=== PATIENT | female | born 1935 | race Two or more races ===

== ENCOUNTER 2025-03-17 14:42 | Inpatient (IN) | payer OTHER ==
[~2025-03-17] VITALS: Ht 160 cm; Wt 78.9 kg
[2025-03-17] MEDS ORDERED: ZESTRIL40 M1 (15:01)
[2025-03-17] MEDS ORDERED: ASA-BUTALB-CAF1 EACH (15:01)
[2025-03-17] MEDS ORDERED: LEVOTHYROXINE25 MC2 PO (15:01)
[2025-03-17] MEDS ORDERED: GLIPIZIDE ER2.5 MG PO (15:02)
--- NOTE | 2025-03-17 15:02 | NUR ---
SE RECIBE PTE A ARISTEO DE EMERGENCIA EN AMBULANCIA ALERTA REFIERE QUE KORINA POR ULCERA EN AMBAS PIERNAS MAREADA [place] INCOHERENCIA. SE UBICA PARA EVALUACION MEDICA.
[2025-03-17] MEDS ORDERED: 0.9 % SODIUM CHLORIDE 1,000 ML IV STA (16:50)
--- NOTE | 2025-03-17 17:04 | NUR ---
RN. CONTRERAS ORIENTA PTE SOBRE ORDEN MEDICA Y LA ENJECUTA EN GRAVES TOTALIDAD
[2025-03-17 17:41] LABS: BASO % 0.2 % (0.1-1.2); EOS # 0.00 (0.04-0.54); EOS % 0.0 % (0.7-7.0); LYMPH # 1.72 (1.18-3.74); LYMPH % 6.9 % (19.3-53.1); MEAN PLATELET VOLUME 9.50 fl (9.4-12.4); MONO # 0.72 (0.24-0.82); MONO % 2.9 % (4.7-12.5); NEUT # 21.93 (1.56-6.13); NEUT % 87.6 % (34.0-71.1); RED CELL DISTRIBUTION WIDTH 13.4 % (11.6-14.4)
[2025-03-17 17:55] LABS: ERYTHROCYTE SEDIMENTATION RATE > 130 mm/hr (0-30)
[2025-03-17 17:57] LABS: COVID-19 AG NEGATIVE (NEGATIVE)
[2025-03-17 18:16] LABS: D DIMER 2.14 MG/L
[2025-03-17 18:17] LABS: ALT/SGPT 17.0 U/L (12-78); AST/SGOT 43.0 U/L (15-37); BILIRUBIN TOTAL 0.36 mg/dL (0.3-1.2); BUN CREA RATIO 30.0 (7.0-25.0); CREATININE SERUM 1.89 mg/dL (0.55-1.02); GFR 25.16; GLOBULINA 5.2 G/DL (2.4-3.5); GLUCOSE FASTING 194.0 mg/dL (65-100); OSMOLALITY SERUM 298.0 MOSM/KG (275-295)
[2025-03-17 18:27] LABS: INR 1.16
[2025-03-17] MEDS ORDERED: NITROGLYCERIN IN 5 % DEXTROSE 50 MG/250 ML KIT IV STA (18:46)
[2025-03-17] MEDS ORDERED: CLOPIDOGREL BISULFATE 75 MG TABLET PO STA (18:47)
[2025-03-17] MEDS ORDERED: SODIUM BICARBONATE 1 MEQ/ML DISP.SYRIN 50ML IV STA (18:48)
[2025-03-17] MEDS ORDERED: SODIUM BICARBONATE 50MEQ/50ML VIAL IV ONE (19:02)
[2025-03-17 19:03] LABS: ABG PH 7.388 (7.35-7.45); ABG PO2 74.4 mmHg (80-100); BICARBONATE 17.1 mmol/l (23-25)
[2025-03-17] MEDS ORDERED: CLOPIDOGREL BISULFATE 75 MG TABLET PO ONE (19:30)
[2025-03-17] MEDS ORDERED: SODIUM POLYSTYRENE SULFONATE 15 G/4 TSP TSP PO SCH (19:42)
[2025-03-17] MEDS ORDERED: INSULIN REGULAR, HUMAN 1,000 UNIT/10 ML UNITS IV ONE (19:45)
[2025-03-17] MEDS ORDERED: DEXTROSE 50 % IN WATER 0.5 G/ML VIAL IV ONE (19:45)
[2025-03-17] MEDS ORDERED: CALCIUM GLUCONATE 100 MG/ML VIAL IV ONE (19:45)
[2025-03-17] MEDS ORDERED: FAMOTIDINE/PF 20 MG in 0.9 % SODIUM CHLORIDE 8 ML IV PUSH SCH (19:48)
[2025-03-17] MEDS ORDERED: ATORVASTATIN CALCIUM 40 MG TABLET PO SCH (19:48)
[2025-03-17] MEDS ORDERED: INSULIN LISPRO 1,000 UNIT/10 ML UNITS SUBCUTANEO PRN (20:00)
[2025-03-17] MEDS ORDERED: ACETAMINOPHEN 500 MG GEL..CAP PO PRN (20:00)
[2025-03-17] MEDS ORDERED: 0.9 % SODIUM CHLORIDE 1,000 ML IV SCH (20:00)
[2025-03-17] MEDS ORDERED: DEXTROSE 50 % IN WATER 0.5 G/ML DISP.SYRIN IV PRN (20:00)
[2025-03-17] MEDS ORDERED: 0.9 % SODIUM CHLORIDE 1,000 ML IV ONE ×2 (20:00)
[2025-03-17 20:11] LABS: o2 21 %
[2025-03-17] MEDS ORDERED: LINEZOLID IN DEXTROSE 5% 300 ML IV SCH (21:00)
[2025-03-17] MEDS ORDERED: MEROPENEM 500 MG/VIAL VIAL IV SCH (21:00)
[2025-03-17] MEDS ORDERED: CALCIUM GLUCONATE 100 MG/ML VIAL ONE (21:09)
[2025-03-17] MEDS ORDERED: FAMOTIDINE/PF 20 MG/2 ML VIAL ONE (21:10)
[2025-03-17] MEDS ORDERED: INSULIN REGULAR, HUMAN 1,000 UNIT/10 ML UNITS ONE (21:10)
[2025-03-17] MEDS ORDERED: SODIUM POLYSTYRENE SULFONATE 15 G/4 TSP TSP ONE (21:11)
[2025-03-17] MEDS ORDERED: NOREPINEPHRINE BITARTRATE 1 MG/ML AMPUL IV ONE (21:21)
[2025-03-17] MEDS ORDERED: NOREPINEPHRINE BITARTRATE 8 MG in DEXTROSE 5 % IN WATER 250 ML IV SCH (21:30)
[2025-03-17 22:56] VITALS: BP 114/53
[2025-03-17 23:00] VITALS: BP 151/58; O2SAT 100
[2025-03-18] VITALS (17 sets, daily range): BP systolic 98–158; BP diastolic 44–84; O2SAT 95–100
[2025-03-18] MEDS ORDERED: LEVOTHYROXINE SODIUM 25 MCG TABLET PO SCH (06:00)
[2025-03-18 06:22] LABS: URINE APPEARANCE Clear; URINE BILIRRUBIN Negative (NEGATIVE); URINE BLOOD Moderate; URINE COLOR Yellow; URINE GLUCOSE Negative (NEGATIVE); URINE KETONE Trace (NEGATIVE); URINE LEUKOCYTE Moderate; URINE NITRATE Negative; URINE PROTEIN Trace (NEGATIVE); URINE UROBILINOGEN 0.2 E.U./dl
[2025-03-18 06:27] LABS: URINE BACTERIA 210.0 uL (0.0-1933); URINE CAST 1.46 uL (0.0-1.40); URINE EPITHELIAL CELLS 14.1 uL (0.0-38.8); URINE RBC 217.2 uL (0.0-20.8); URINE WBC 370.3 uL (0.0-23.2)
[2025-03-18 06:48] LABS: CHOL HDL RATIO 1.7 (0-5.0); HDL 49.0 mg/dl (40-60); LDL 16.0 mg/dl (0-130); VLDL 16.0 (0-39)
[2025-03-18] MEDS ORDERED: INSULIN LISPRO 1,000 UNIT/10 ML UNITS SUBCUTANEO ONE (08:12)
[2025-03-18] MEDS ORDERED: SODIUM POLYSTYRENE SULFONATE 15 G/4 TSP TSP PO SCH (09:00)
[2025-03-18 12:46] LABS: ob POSITIVE (NEGATIVE)
[2025-03-18] MEDS ORDERED: SODIUM POLYSTYRENE SULFONATE 30G/8 TSP PO SCH (21:00)
[2025-03-18] MEDS ORDERED: LINEZOLID 600 MG TABLET PO SCH (21:00)
[2025-03-18] MEDS ORDERED: LORazepam 2 MG/ML VIAL IM ONE (22:15)
[2025-03-18] MEDS ORDERED: LEVALBUTEROL HCL 0.63 MG/3 ML SOLUTION IH SCH (22:15)
[2025-03-18] MEDS ORDERED: LORazepam 2 MG/ML VIAL IV ONE (23:45)
[2025-03-19] MEDS ORDERED: LEVALBUTEROL HCL 0.63 MG/3 ML SOLUTION IH SCH (01:00)
[2025-03-19 04:00] VITALS: BP 134/83; O2SAT 100
[2025-03-19 07:12] VITALS: BP 96/74; O2SAT 100
[2025-03-19] MEDS ORDERED: LORazepam 2 MG/ML VIAL IV NR (09:00)
[2025-03-19 12:00] VITALS: BP 171/81
[2025-03-19] MEDS ORDERED: hydrALAZINE HCL 20 MG VIAL IV PRN (14:15)
[2025-03-19 15:14] VITALS: BP 147/78; O2SAT 100
[2025-03-19] MEDS ORDERED: INSULIN GLARGINE,HUM.REC.ANLOG 1,000 UNITS/10 ML UNITS SUBCUTANEO SCH (17:00)
[2025-03-19 18:20] LABS: BASO % 0.1 % (0.1-1.2); EOS # 0.00 (0.04-0.54); EOS % 0.0 % (0.7-7.0); LYMPH # 1.34 (1.18-3.74); LYMPH % 8.8 % (19.3-53.1); MEAN PLATELET VOLUME 9.60 fl (9.4-12.4); MONO # 0.75 (0.24-0.82); MONO % 4.9 % (4.7-12.5); NEUT # 12.97 (1.56-6.13); NEUT % 85.6 % (34.0-71.1); RED CELL DISTRIBUTION WIDTH 14.9 % (11.6-14.4)
[2025-03-19 18:54] LABS: ALT/SGPT 30.0 U/L (12-78); AST/SGOT 86.0 U/L (15-37); BILIRUBIN TOTAL 0.28 mg/dL (0.3-1.2); BUN CREA RATIO 31.0 (7.0-25.0); CREATININE SERUM 1.28 mg/dL (0.55-1.02); GFR 39.44; GLOBULINA 4.3 G/DL (2.4-3.5)
[2025-03-19 18:55] LABS: GLUCOSE FASTING 288.0 mg/dL (65-100); OSMOLALITY SERUM 311.0 MOSM/KG (275-295)
[2025-03-19] MEDS ORDERED: DIPHENHYDRAMINE HCL 50 MG/ML VIAL 1ML IV PRN (19:15)
[2025-03-19] MEDS ORDERED: HALOPERIDOL LACTATE 5 MG/ML AMPUL IM PRN (19:15)
[2025-03-19 20:00] VITALS: BP 154/80; O2SAT 100
[2025-03-19 23:16] VITALS: BP 154/80; O2SAT 100
[2025-03-20 07:38] VITALS: BP 144/78; O2SAT 97
[2025-03-20 07:57] LABS: BASO % 0.1 % (0.1-1.2); EOS # 0.00 (0.04-0.54); EOS % 0.0 % (0.7-7.0); LYMPH # 1.99 (1.18-3.74); LYMPH % 9.7 % (19.3-53.1); MEAN PLATELET VOLUME 9.90 fl (9.4-12.4); MONO # 1.37 (0.24-0.82); MONO % 6.7 % (4.7-12.5); NEUT # 16.83 (1.56-6.13); NEUT % 82.3 % (34.0-71.1); RED CELL DISTRIBUTION WIDTH 14.9 % (11.6-14.4)
[2025-03-20 08:47] LABS: ALT/SGPT 29.0 U/L (12-78); AST/SGOT 74.0 U/L (15-37); BILIRUBIN TOTAL 0.34 mg/dL (0.3-1.2); BUN CREA RATIO 35.0 (7.0-25.0); CREATININE SERUM 1.22 mg/dL (0.55-1.02); GFR 41.69; GLOBULINA 4.4 G/DL (2.4-3.5)
[2025-03-20 08:48] LABS: GLUCOSE FASTING 211.0 mg/dL (65-100); OSMOLALITY SERUM 313.0 MOSM/KG (275-295)
[2025-03-20 11:18] LABS: CORTISOL 14.14 ug/dl
[2025-03-20 12:00] VITALS: BP 163/89; O2SAT 98
[2025-03-20] MEDS ORDERED: LISINOPRIL 40 MG TABLET PO SCH (13:20)
[2025-03-20] MEDS ORDERED: ENOXAPARIN SODIUM 40 MG/0.4 ML SYRINGE SUBCUTANEO SCH (13:26)
[2025-03-20] MEDS ORDERED: METOPROLOL SUCCINATE 25 MG TAB.SR.24H PO SCH (13:30)
[2025-03-20] MEDS ORDERED: DEXTROSE 5 % IN WATER 1,000 ML IV SCH (13:45)
[2025-03-20] MEDS ORDERED: METOPROLOL SUCCINATE 25 MG TAB.SR.24H PO STA (13:57)
[2025-03-20] MEDS ORDERED: ENOXAPARIN SODIUM 40 MG/0.4 ML SYRINGE SUBCUTANEO STA (13:59)
[2025-03-20 15:34] VITALS: BP 161/99; O2SAT 100
[2025-03-20 20:00] VITALS: BP 140/71; O2SAT 100
[2025-03-20 20:51] LABS: MONONUCLEAR 57.4 %; POLYMORPHONUCLEAR 42.6 %
[2025-03-20 21:10] LABS: GLU PLEURAL FLUID 259.0 mg/dl; LDH PLEURAL FLUID 138.0 U/L; TP PLEURAL FLUID 1.9 g/dl
[2025-03-20 23:18] VITALS: BP 149/84; O2SAT 95
[2025-03-21 04:00] VITALS: BP 147/80; O2SAT 95
[2025-03-21 07:12] VITALS: BP 161/79
[2025-03-21 07:37] LABS: BASO % 0.2 % (0.1-1.2); EOS # 0.00 (0.04-0.54); EOS % 0.0 % (0.7-7.0); LYMPH # 1.54 (1.18-3.74); LYMPH % 10.6 % (19.3-53.1); MEAN PLATELET VOLUME 9.90 fl (9.4-12.4); MONO # 1.13 (0.24-0.82); MONO % 7.8 % (4.7-12.5); NEUT # 11.61 (1.56-6.13); NEUT % 80.1 % (34.0-71.1); RED CELL DISTRIBUTION WIDTH 14.9 % (11.6-14.4)
[2025-03-21 08:06] LABS: ALT/SGPT 29.0 U/L (12-78); AST/SGOT 50.0 U/L (15-37); BILIRUBIN TOTAL 0.52 mg/dL (0.3-1.2); BUN CREA RATIO 33.0 (7.0-25.0); CREATININE SERUM 1.29 mg/dL (0.55-1.02); GFR 39.09; GLOBULINA 4.3 G/DL (2.4-3.5)
[2025-03-21 08:11] LABS: GLUCOSE FASTING 285.0 mg/dL (65-100); OSMOLALITY SERUM 317.0 MOSM/KG (275-295)
[2025-03-21 09:07] LABS: ABG PH 7.378 (7.35-7.45); ABG PO2 68.6 mmHg (80-100); BICARBONATE 18.5 mmol/l (23-25)
[2025-03-21 09:08] LABS: o2 36 %
[2025-03-21 12:00] VITALS: BP 160/75; O2SAT 100
[2025-03-21 15:20] VITALS: BP 149/77; O2SAT 100
[2025-03-21] MEDS ORDERED: INSULIN GLARGINE,HUM.REC.ANLOG 1,000 UNITS/10 ML UNITS SUBCUTANEO SCH (17:00)
[2025-03-21 20:00] VITALS: BP 151/88; O2SAT 100
[2025-03-21 23:12] VITALS: BP 91/70; O2SAT 100
[2025-03-22 04:06] VITALS: BP 162/93; O2SAT 100
[2025-03-22] MEDS ORDERED: DOPamine HCL IN DEXTROSE 5 % 250 ML IV SCH (05:00)
[2025-03-22 07:37] VITALS: BP 117/77; O2SAT 100
[2025-03-22] MEDS ORDERED: NOREPINEPHRINE BITARTRATE 8 MG in DEXTROSE 5 % IN WATER 250 ML IV SCH (10:00)
[2025-03-22] MEDS ORDERED: CHLORHEXIDINE GLUCONATE 15ML BRUSH KIT MM SCH (10:34)
[2025-03-22 10:44] LABS: BASO % 0.2 % (0.1-1.2); EOS # 0.00 (0.04-0.54); EOS % 0.0 % (0.7-7.0); LYMPH # 4.60 (1.18-3.74); LYMPH % 20.3 % (19.3-53.1); MEAN PLATELET VOLUME 9.80 fl (9.4-12.4); MONO # 0.61 (0.24-0.82); MONO % 2.7 % (4.7-12.5); NEUT # 16.96 (1.56-6.13); NEUT % 75.0 % (34.0-71.1); RED CELL DISTRIBUTION WIDTH 15.1 % (11.6-14.4)
[2025-03-22] MEDS ORDERED: MIDAZOLAM HCL 50 MG in 0.9 % SODIUM CHLORIDE 50 ML IV SCH (10:45)
[2025-03-22] MEDS ORDERED: PANTOPRAZOLE SODIUM 40 MG/VIAL VIAL IV PUSH NR (11:00)
[2025-03-22 11:06] LABS: ALT/SGPT 182.0 U/L (12-78); AST/SGOT 318.0 U/L (15-37); BILIRUBIN TOTAL 1.19 mg/dL (0.3-1.2); BUN CREA RATIO 25.0 (7.0-25.0); CREATININE SERUM 2.27 mg/dL (0.55-1.02); GFR 20.36; GLOBULINA 5.1 G/DL (2.4-3.5)
[2025-03-22 11:20] LABS: GLUCOSE FASTING 299.0 mg/dL (65-100); OSMOLALITY SERUM 321.0 MOSM/KG (275-295)
[2025-03-22 12:00] VITALS: BP 145/97; O2SAT 100
[2025-03-22 12:24] LABS: ABG PH 7.330 (7.35-7.45); ABG PO2 278.6 mmHg (80-100); BICARBONATE 17.2 mmol/l (23-25)
[2025-03-22 12:25] LABS: o2 100 %
[2025-03-22] MEDS ORDERED: POTASSIUM CHLORIDE IN WATER 100 ML IV SCH (13:00)
[2025-03-22 14:09] LABS: BICARBONATE 11.5 mmol/l (23-25)
[2025-03-22 14:10] LABS: ABG PH 7.040 (7.35-7.45); ABG PO2 69.3 mmHg (80-100); o2 100 %
[2025-03-22] MEDS ORDERED: POLYVINYL ALCOHOL 15 ML DROPS OP SCH (17:00)
[2025-03-23] MEDS ORDERED: PANTOPRAZOLE SODIUM 40 MG/VIAL VIAL IV PUSH SCH (09:00)
== END 2025-03-22 19:46 | disposition expired | DRG 622 ==
LOC: ER 14:42 → ICU-2 20:12 → ICU 20:12
PROVIDERS: General Practice; Internal Medicine; Internal Medicine Infectious Disease; Internal Medicine Nephrology; Radiology Vascular & Interventional Radiology; ADMIT Internal Medicine; ATTEND Internal Medicine
PROC: B44HZZZ Ultrasonography of Bilateral Lower Extremity Arteries (ICD-10-PCS; 2025-03-17)
PROC: B246ZZZ Ultrasonography of Right and Left Heart (ICD-10-PCS; 2025-03-17)
PROC: B54DZZZ Ultrasonography of Bilateral Lower Extremity Veins (ICD-10-PCS; 2025-03-17)
PROC: 4A12X4Z Monitoring of Cardiac Electrical Activity, External Approach (ICD-10-PCS; 2025-03-17)
PROC: 0JBN0ZZ Excision of Right Lower Leg Subcutaneous Tissue and Fascia, Open Approach (ICD-10-PCS; principal; 2025-03-18)
PROC: 0JBR0ZZ Excision of Left Foot Subcutaneous Tissue and Fascia, Open Approach (ICD-10-PCS; 2025-03-18)
PROC: 3E0F7GC Introduction of Other Therapeutic Substance into Respiratory Tract, Via Natural or Artificial Opening (ICD-10-PCS; 2025-03-18)
PROC: BB24ZZZ Computerized Tomography (CT Scan) of Bilateral Lungs (ICD-10-PCS; 2025-03-19)
PROC: 0W993ZZ Drainage of Right Pleural Cavity, Percutaneous Approach (ICD-10-PCS; 2025-03-19)
PROC: 02HV33Z Insertion of Infusion Device into Superior Vena Cava, Percutaneous Approach (ICD-10-PCS; 2025-03-19)
PROC: B548ZZA Ultrasonography of Superior Vena Cava, Guidance (ICD-10-PCS; 2025-03-19)
PROC: 30243N1 Transfusion of Nonautologous Red Blood Cells into Central Vein, Percutaneous Approach (ICD-10-PCS; 2025-03-19)
PROC: 5A1935Z Respiratory Ventilation, Less than 24 Consecutive Hours (ICD-10-PCS; 2025-03-22)
PROC: 0BH17EZ Insertion of Endotracheal Airway into Trachea, Via Natural or Artificial Opening (ICD-10-PCS; 2025-03-22)
PROC: 5A12012 Performance of Cardiac Output, Single, Manual (ICD-10-PCS; 2025-03-22)
DX: E11.622 Type 2 diabetes mellitus with other skin ulcer (principal); A41.01 Sepsis due to Methicillin susceptible Staphylococcus aureus; A41.52 Sepsis due to Pseudomonas; I21.A1 Myocardial infarction type 2; R65.21 Severe sepsis with septic shock; J18.1 Lobar pneumonia, unspecified organism; J96.00 Acute respiratory failure, unspecified whether with hypoxia or hypercapnia; L97.329 Non-pressure chronic ulcer of left ankle with unspecified severity; L97.819 Non-pressure chronic ulcer of other part of right lower leg with unspecified severity; L02.416 Cutaneous abscess of left lower limb; N39.0 Urinary tract infection, site not specified; J90 Pleural effusion, not elsewhere classified; J98.11 Atelectasis; N17.9 Acute kidney failure, unspecified; I46.9 Cardiac arrest, cause unspecified; E11.51 Type 2 diabetes mellitus with diabetic peripheral angiopathy without gangrene; I83.018 Varicose veins of right lower extremity with ulcer other part of lower leg; I83.028 Varicose veins of left lower extremity with ulcer other part of lower leg; D63.1 Anemia in chronic kidney disease; R41.82 Altered mental status, unspecified; I13.10 Hypertensive heart and chronic kidney disease without heart failure, with stage 1 through stage 4 chronic kidney disease, or unspecified chronic kidney disease; E11.22 Type 2 diabetes mellitus with diabetic chronic kidney disease; E11.65 Type 2 diabetes mellitus with hyperglycemia; N18.9 Chronic kidney disease, unspecified; E03.9 Hypothyroidism, unspecified; E78.5 Hyperlipidemia, unspecified; Z95.1 Presence of aortocoronary bypass graft; Z79.84 Long term (current) use of oral hypoglycemic drugs